=== PATIENT | female | born 1975 | race Caucasian/White ===

== ENCOUNTER 2025-03-22 15:06 | Outpatient (CLI) | payer OTHER, SELFPAY ==
--- NOTE | ~2025-03-22 | MR_ITS ---
MRI of the left ankle Clinical history: Pain Technique: Coronal proton-density and proton-density fat-sat images, axial proton-density and proton- density fat-sat images, and sagittal proton-density and proton-density fat-sat images were acquired. Findings: Syndesmotic ligaments are intact. Anterior and posterior talofibular ligaments, and calcane ofibular ligament are intact. Deltoid ligament intact. Medial flexor tendons, anterior extensor tendons, and Achilles tendon are intact. Peroneus longus ten don is intact. There is longitudinal split tear of the peroneus brevis tendon at the level of the lat eral malleolus tip. There is no osteochondral lesion of the talar dome. Bone marrow signals and joint spaces appear intac t. No significant joint effusion. Plantar fascia intact with small plantar calcaneal spur. No soft ti ssue mass or fluid collection evident. Impression: Longitudinal split tear of the peroneus brevis tendon, as detailed above. Small plantar calcaneal spur. Reviewed, dictated and finalized at location . Impression: Longitudinal split tear of the peroneus brevis tendon, as detailed above. Small plantar calcaneal spur.
== END 2025-03-22 15:07 | disposition home or self-care (01) ==
LOC: MICIMG 15:13
PROVIDERS: PCP Podiatrist Foot & Ankle Surgery; Visit Provider Podiatrist Foot & Ankle Surgery
DX: S86.312A Strain of muscle(s) and tendon(s) of peroneal muscle group at lower leg level, left leg, initial encounter (principal); M77.32 Calcaneal spur, left foot; X58.XXXA Exposure to other specified factors, initial encounter
CPT/HCPCS: 73721